=== PATIENT | female | born 1990 | race Caucasian/White ===

== ENCOUNTER 2021-05-01 02:47 | Inpatient (IN) | payer OTHER, BC ==
[2021-05-01] MEDS ORDERED: Fentanyl 100 MCG/2 ML VIAL ONE ×4 (02:50→16:33)
[2021-05-01 03:25] LABS: #Basophils 0.1 thou/uL (0.0-0.2); #Monocytes 0.3 thou/uL (0.11-0.59); #Neutrophils 3.4 thou/uL (1.40-6.50); %Basophils 1.2 % (0.0-1.0); %Eosinophils 0.2 % (0.0-10.0); %Lymphocytes 34.9 % (21.0-51.0); %Monocytes 5.4 % (0.0-10.0); %Neutrophils 58.4 % (42.0-75.0); Hemoglobin 13.5 g/dL (12.0-16.0); Mean Corpuscular HGB CONC 35.9 g/dL (32.0-36.0); Mean Platelet Volume 7.3 fL (7.4-10.4); Platelet Count 331 thou/uL (130-400); RBC Distribution Width 11.8 % (11.5-14.5); Red Blood Cell (RBC) Count 4.08 mill/uL (4.20-5.40); White Blood Cell (WBC) Count 5.8 thou/uL (4.8-10.8)
[2021-05-01 03:33] LABS: ALT (SGPT) 29 U/L (8-55); AST (SGOT) 33 U/L (5-34); Albumin 3.6 g/dL (3.5-5.0); Alkaline Phosphatase 42 U/L (40-110); Anion Gap 17 mmol/L (10-20); BUN (Urea Nitrogen) 8 mg/dL (7.0-18.7); Bilirubin, Total 0.2 mg/dL (0.2-1.2); Calc. Creatinine Clearance 0 mL/min (70-130); Calcium 8.8 mg/dL (7.8-10.44); Carbon Dioxide 15 mmol/L (22-29); Chloride 109 mmol/L (98-107); Globulin 2.8 g/dL (2.4-3.5); Glucose 126 mg/dL (70-105); Potassium 3.2 mmol/L (3.5-5.1); Protein, Total 6.4 g/dL (6.0-8.3); Sodium 138 mmol/L (136-145)
[2021-05-01] MEDS ORDERED: Ondansetron ODT 8 MG TAB ONE (04:41)
[2021-05-01] MEDS ORDERED: Ondansetron PF 4 MG/2 ML Vial ONE ×4 (04:42→15:19)
[2021-05-01] MEDS ORDERED: Ondansetron ODT 4 MG TAB PO PRN (05:05)
[2021-05-01] MEDS ORDERED: Dextrose 5% in Water 1,000 ML IV PRN (05:05)
[2021-05-01] MEDS ORDERED: Dextrose 50% Abboject 50 ML SYRINGE SLOW IVP PRN (05:05)
[2021-05-01] MEDS ORDERED: Ondansetron PF 4 MG/2 ML Vial IVP PRN (05:05)
[2021-05-01] MEDS ORDERED: hydrALAZINE 20 MG/ML VIAL SLOW IVP PRN (05:05)
[2021-05-01] MEDS ORDERED: cefTRIAXone\\ROCEPHIN 2 GM VIAL ONE (05:09)
[2021-05-01] MEDS ORDERED: traMADol HCl 50 MG TAB PO PRN (05:12)
[2021-05-01] MEDS ORDERED: Cyclobenzaprine 10 MG TAB PO PRN (05:12)
[2021-05-01 05:17] LABS: BHCG - Serum Negative (NEGATIVE); Pregs Control Background? CLEAR/WHITE (CLR/WHITE); Pregs Control Bar Appear? YES (CONTROL BAR)
[2021-05-01] MEDS ORDERED: Acetaminophen 500 MG TAB ONE (05:51)
[2021-05-01] MEDS: Acetaminophen 500 MG TAB PO SCH ×3 (06:57→17:47)
[2021-05-01] MEDS: Ibuprofen 800 MG TAB PO SCH ×3 (06:57→20:26)
[2021-05-01] MEDS: Sodium Chloride 0.9% 1,000 ML IV SCH ×2 (06:58→15:44)
[2021-05-01 07:01] LABS: SARS-CoV-2 NAA Rapid Test Not Detected (NotDetected)
[2021-05-01] MEDS ORDERED: ceFAZolin Sodium/D5W 2 GM in Premix Bag 1 BAG IVPB SCH (07:30)
[2021-05-01 07:36] VITALS: BMI 42.0
[2021-05-01] MEDS ORDERED: FLU VACC QS2021-22(6MOS UP)/PF 60 MCG/0.5 ML SYRINGE IM ONE (07:45)
[2021-05-01] MEDS: Famotidine 20 MG TAB PO SCH ×2 (09:13→20:25)
[2021-05-01] MEDS ORDERED: Iopamidol-370 76% 500 ML 1 ML ONE (10:06)
[2021-05-01] MEDS ORDERED: ceFAZolin 2 GM/DEX 5% 100 ML BAG ONE (13:47)
[2021-05-01] MEDS ORDERED: Ketorolac Tromethamine 30 MG/ML VIAL ONE (14:17)
[2021-05-01] MEDS ORDERED: Midazolam HCl 2 mg/2 ml Vial ONE (14:54)
[2021-05-01] MEDS ORDERED: Vecuronium 10 MG VIAL ONE (14:55)
[2021-05-01] MEDS ORDERED: Metoclopramide HCl 10 MG/2 ML VIAL ONE (14:55)
[2021-05-01] MEDS ORDERED: Dexamethasone 20 MG/5 ML VIAL ONE (14:55)
[2021-05-01] MEDS ORDERED: ePHEDrine 50 MG/ML VIAL ONE (14:55)
[2021-05-01] MEDS ORDERED: Glycopyrrolate 0.2 MG/ML 5 ML SYRINGE ONE (14:55)
[2021-05-01] MEDS ORDERED: PROPOFOL 200 MG/20 ML VIAL ONE (14:55)
[2021-05-01] MEDS ORDERED: HYDROmorphone 2 MG/ML VIAL ONE (15:44)
[2021-05-01] MEDS ORDERED: Dexamethasone 4 mg/ml Vial ONE (16:12)
[2021-05-01] MEDS ORDERED: Promethazine HCl 25 MG/ML VIAL IM PRN (16:31)
[2021-05-01] MEDS ORDERED: Ondansetron HCl/PF 4 MG/2 ML Vial IVP PRN (16:31)
[2021-05-01] MEDS ORDERED: Promethazine HCl 25 MG/ML VIAL IVPB PRN (16:31)
[2021-05-01] MEDS ORDERED: HYDROmorphone 2 MG/ML VIAL SLOW IVP PRN (16:31)
[2021-05-01] MEDS ORDERED: Meperidine HCl/PF 25 MG/ML VIAL SLOW IVP PRN (16:31)
[2021-05-01] MEDS: traMADol HCl 50 MG TAB PO PRN (20:25)
[2021-05-02] MEDS: Sodium Chloride 0.9% 1,000 ML IV SCH ×2 (01:23→04:00)
[2021-05-02] MEDS: Acetaminophen 500 MG TAB PO SCH ×4 (01:27→18:10)
[2021-05-02] MEDS: ceFAZolin Sodium/D5W 2 GM in Premix Bag 1 BAG IVPB SCH ×3 (01:28→14:18)
[2021-05-02] MEDS: Ibuprofen 800 MG TAB PO SCH ×3 (05:22→21:32)
[2021-05-02] MEDS: traMADol HCl 50 MG TAB PO PRN (05:24)
[2021-05-02 06:13] LABS: #Lymphocytes 0.9 thou/uL (1.20-3.40); #Monocytes 0.4 thou/uL (0.11-0.59); #Neutrophils 5.7 thou/uL (1.40-6.50); %Basophils 0.3 % (0.0-1.0); %Lymphocytes 13.1 % (21.0-51.0); %Monocytes 5.7 % (0.0-10.0); %Neutrophils 80.9 % (42.0-75.0); Hemoglobin 11.5 g/dL (12.0-16.0); Mean Corpuscular HGB CONC 34.6 g/dL (32.0-36.0); Mean Corpuscular Hemoglobin 32.1 pg (27.0-31.0); Mean Corpuscular Volume 92.8 fL (78.0-98.0); Mean Platelet Volume 7.4 fL (7.4-10.4); Platelet Count 289 thou/uL (130-400); RBC Distribution Width 11.8 % (11.5-14.5); Red Blood Cell (RBC) Count 3.58 mill/uL (4.20-5.40); White Blood Cell (WBC) Count 7.1 thou/uL (4.8-10.8)
[2021-05-02 06:37] LABS: Anion Gap 13 mmol/L (10-20); BUN (Urea Nitrogen) 4 mg/dL (7.0-18.7); Calc. Creatinine Clearance 217 mL/min (70-130); Calcium 7.6 mg/dL (7.8-10.44); Carbon Dioxide 20 mmol/L (22-29); Chloride 108 mmol/L (98-107); Glucose 122 mg/dL (70-105); Magnesium 1.9 mg/dL (1.6-2.6); Potassium 3.9 mmol/L (3.5-5.1); Sodium 137 mmol/L (136-145)
[2021-05-02 07:24] LABS: Phosphorus 2.4 mg/dL (2.3-4.7)
[2021-05-02] MEDS: Famotidine 20 MG TAB PO SCH (08:05)
[2021-05-02] MEDS: traMADol HCl 50 MG TAB PO SCH ×3 (09:59→21:31)
[2021-05-02] MEDS: Cephalexin 250 MG CAP PO SCH (18:01)
[2021-05-03] MEDS: Cephalexin 250 MG CAP PO SCH ×3 (00:16→12:52)
[2021-05-03] MEDS: Acetaminophen 500 MG TAB PO SCH ×3 (00:16→12:52)
[2021-05-03] MEDS: traMADol HCl 50 MG TAB PO SCH ×2 (03:51→09:35)
[2021-05-03] MEDS: Ibuprofen 800 MG TAB PO SCH ×2 (06:16→14:45)
[2021-05-03 11:46] VITALS: BP 130/89; TEMP 98.5
== END 2021-05-03 15:30 | disposition home or self-care (01) | DRG 493 ==
LOC: ERS 02:47 → SURG B 05:13 → EDBD 05:13
PROVIDERS: ADMIT Surgery; ATTEND Surgery
PROC: 0QSG06Z Reposition Right Tibia with Intramedullary Internal Fixation Device, Open Approach (ICD-10-PCS; principal; 2021-05-01)
DX: S82.201A Unspecified fracture of shaft of right tibia, initial encounter for closed fracture (principal); S02.19XA Other fracture of base of skull, initial encounter for closed fracture; G93.89 Other specified disorders of brain; F41.9 Anxiety disorder, unspecified; F32.A Depression, unspecified; Z20.822 Contact with and (suspected) exposure to COVID-19; V89.9XXA Person injured in unspecified vehicle accident, initial encounter; Y92.89 Other specified places as the place of occurrence of the external cause
CPT/HCPCS: 36415; 70450; 71260; 72125; 74177; 76000; 80048; 80053; 83735; 84100; 84703; 85025; C1713; G0390; J0696; J1100; J1170; J1885; J2250; J2405; J2704; J2765; J3010; J3490; J7050; Q0162; Q9967; U0002